=== PATIENT | female | born 1960 | race Caucasian/White ===

== ENCOUNTER 2018-04-21 14:14 | Emergency (ER) | payer MEDICARE ==
[2018-04-21 15:40] VITALS: BP 100/59
--- NOTE | 2018-04-21 16:33 | UC ---
Respiratory Complaint HPI - HPI Summary HPI Summary: 57-year-old female presents with complaints of mild nasal congestion, mild sore throat, and harsh nonproductive cough since yesterday. States today developed a fever of 101.3 F with chills. Complaints of some bilateral chest wall pain with coughing. Reports she was seen by her primary care provider last week and treated for an upper respiratory infection with a seven-day course of an unknown antibiotic which she did complete. States her symptoms had improved until yesterday. Did not receive her flu shot this year. Denies ear pain, headache, dysphagia, shortness of breath, wheezing, abdominal pain, nausea, vomiting, or diarrhea. Patient smokes half a pack of cigarettes a day. - History of Current Complaint Chief Complaint: UCRespiratory Stated Complaint: COUGH, ACHES Time Seen by Provider: 04/21/18 16:30 Hx Obtained From: Patient Pain Intensity: 8 - Allergies/Home Medications Allergies/Adverse Reactions: Allergies Allergy/AdvReac Type Severity Reaction Status Date / Time No Known Allergies Allergy Verified 04/21/18 15:40 Home Medications: Home Medications Losartan TAB* [Cozaar TAB*] 50 mg PO DAILY 04/21/18 [History Confirmed 04/21/18] Metformin HCl [Metformin HCl ER] 500 mg PO DAILY 04/21/18 [History Confirmed 11/30] Naproxen Sodium [Aleve] 440 mg PO ONCE PRN 04/21/18 [History Confirmed 04/21/18] PMH/Surg Hx/FS Hx/Imm Hx Endocrine History: Diabetes Cardiovascular History: Hypertension Respiratory History: Bronchitis - Surgical History Surgical History: Yes Surgery Procedure, Year, and Place: c spine, R wrist, tubal - Family History Known Family History: Positive: Non-Contributory - Social History Lives: With Family Alcohol Use: None Substance Use Type: None Smoking Status (MU): Heavy Every Day Tobacco Smoker Type: Cigarettes Amount Used/How Often: 1/2 - 1 ppd Length of Time of Smoking/Using Tobacco: since age 17 Review of Systems All Other Systems Reviewed And Are Negative: Yes Constitutional: Positive: Fever, Chills, Fatigue Skin: Negative: Rash Eyes: Negative: Drainage, Eye Redness ENT: Positive: Sore Throat, Nasal Discharge, Sinus Congestion. Negative: Ear Ache, Sinus Pain/Tenderness Respiratory: Positive: Cough. Negative: Shortness Of Breath Cardiovascular: Negative: Palpitations, Chest Pain Gastrointestinal: Negative: Abdominal Pain, Vomiting, Diarrhea, Nausea Genitourinary: Positive: Negative Musculoskeletal: Positive: Negative Neurological: Positive: Negative Is Patient Immunocompromised?: No Physical Exam - Summary Physical Exam Summary: GENERAL APPEARANCE: Appears older than stated age, well nourished, alert and cooperative, and appears to be in no acute distress. EYES: Conjunctiva clear. No drainage. Vision is grossly intact. EARS: External auditory canals and tympanic membranes clear, hearing grossly intact. NOSE: Mild nasal congestion. No nasal discharge. THROAT: Mild pharyngeal. No tonsilar inflammation, swelling, exudate, or lesions. Uvula midline. Oral cavity normal. Teeth and gingiva in good general condition. NECK: Neck supple, non-tender without lymphadenopathy. CARDIAC: Normal S1 and S2. No S3, S4 or murmurs. Rhythm is regular. There is no peripheral edema, cyanosis or pallor. Extremities are warm and well perfused. Capillary refill is less than 2 seconds. Peripheral pulses intact. LUNGS: Clear to auscultation without rales, rhonchi, wheezing or diminished breath sounds. Harsh, non-productive cough. ABDOMEN: Positive bowel sounds. Soft, nondistended, nontender. No guarding or rebound. No masses or hepatosplenomegally. MUSKULOSKELETAL: ROM intact to all extremities. No joint erythema or tenderness. Normal muscular development. Normal gait. SKIN: Skin normal color, texture and turgor with no lesions or eruptions. Triage Information Reviewed: Yes Vital Signs: Initial Vital Signs Temp 98.4 F 04/21/18 15:29 Pulse 69 04/21/18 15:29 Resp 18 04/21/18 15:29 BP 100/59 04/21/18 15:29 Pulse Ox 96 04/21/18 15:29 Vital Signs Reviewed: Yes Respiratory Course/Dx - Course Course Of Treatment: 57-year-old female presents with complaints of mild nasal congestion, mild sore throat, and harsh nonproductive cough since yesterday. States today developed a fever of 101.3 F with chills. Complaints of some bilateral chest wall pain with coughing. Reports she was seen by her primary care provider last week and treated for an upper respiratory infection with a seven-day course of an unknown antibiotic which she did complete. States her symptoms had improved until yesterday. Did not receive her flu shot this year. Denies ear pain, headache, dysphagia, shortness of breath, wheezing, abdominal pain, nausea, vomiting, or diarrhea. Patient smokes half a pack of cigarettes a day. Afebrile. Vital signs stable. Exam reveals an adult female who appears older than her stated age with some mild nasal congestion, mild pharyngeal erythema, a harsh nonproductive cough, bilaterally clear breath sounds, and otherwise unremarkable exam. Rapid flu positive for influenza A. Discussed risks benefits of treating with Tamiflu with patient and she is electing to start at this time. First dose was given in the clinic. Also recommending symptomatic treatment including tessalon perles 1 cap philip 8 hours as needed for cough. She is to follow up with her PCP in 7 days if symptoms do not improve. Anticipatory guidance and warning symptoms were reviewed with the patient. Verbalizes understanding and agrees with POC. - Differential Dx/Diagnosis Differential Diagnosis/HQI/PQRI: Bronchitis, Influenza, Sinusitis, Other - URI Provider Diagnosis: Influenza A Discharge - Sign-Out/Discharge Documenting (check all that apply): Patient Departure All imaging exams completed and their final reports reviewed: No Studies - Discharge Plan Condition: Stable Disposition: HOME Prescriptions: Benzonatate CAP* [Tessalon 100 MG CAP*] 100 mg PO TID PRN #30 cap PRN Reason: Cough Oseltamivir CAP* [Tamiflu CAP*] 75 mg PO BID #10 cap Patient Education Materials: Influenza (ED) Referrals: Linh Herrera [employer] [Primary Care Provider] - 7 Days (If no improvement in symptoms.) Additional Instructions: Your flu test in the clinic today was positive for influenza A. Start Tamiflu 1 capsule twice a day for 5 days. Get plenty of rest. Drink plenty of fluids to avoid dehydration especially if you are running any fever. Take over the counter acetaminophen (Tylenol) or ibuprofen (Advil, Motrin) according to directions as needed for pain or fever. Take Tessalon Perles 1 cap every 8 hours as needed for cough. Use salt water gargles several times a day if you have a sore throat. You may also use Chloraseptic spray or Cepacol lonzenges according to directions which contain a numbing medication and can provide some temporary relief from your sore throat. Follow up with your primary care provider in 7 days if symptoms persist. Seek immediate medical attention in the emergency room if you have fever greater than 100.5 F despite taking acetaminophen or ibuprofen, have chest pain , difficulty breathing, are unable to swallow, or have any worsening of symptoms. - Billing Disposition and Condition Condition: STABLE Disposition: Home - Attestation Statements Provider Attestation: I was available for consult. This patient was seen by the [facility]. The patient was not presented to , seen by or examined by dc -Sulma Hemphill MD
[2018-04-21 16:56] LABS: Influenza A Molecular POSITIVE (Negative)
[2018-04-21] MEDS ORDERED: Benzonatate CAP* 100 MG PO ONE (17:01)
[2018-04-21] MEDS ORDERED: Oseltamivir CAP* 75 MG CAP PO ONE (17:01)
== END 2018-04-21 17:13 | disposition home or self-care (01) ==
LOC: UCCORT 14:14
DX: J09.X2 Influenza due to identified novel influenza A virus with other respiratory manifestations (principal); E11.9 Type 2 diabetes mellitus without complications; I10 Essential (primary) hypertension
CPT/HCPCS: 99212; A9270-GY; G0463